=== PATIENT | female | born 1955 | race Caucasian/White ===

== ENCOUNTER → 2020-09-07 | Outpatient (CLI) | payer MEDICARE, BC ==
[~2020-09-07] MED LIST: ALLEGRA ALLERG180 MG PO; CHONDROITIN PO; CLARITIN 1010 MG/TAB PO; FLONASE NASAL S16 GM NS; GLU PO; MULTIPLE VITAMI1 CAP PO; PRAVACHOL80 MG PO; PREMARIN 1.251.25 MG PO; VITAMIN D31000 IU; ZETIA 10MG TAB10 MG PO; ZYRTEC 10MG10 MG PO
== END ==
LOC: COL.RAD 08-26 08:00
DX: K31.84 Gastroparesis (principal); K21.9 Gastro-esophageal reflux disease without esophagitis
CPT/HCPCS: A9541